=== PATIENT | female | born 1980 | race Caucasian/White ===

== ENCOUNTER 2017-08-12 13:05 | Emergency (ER) | payer SELFPAY ==
[~2017-08-12] VITALS: Ht 162.6 cm; Wt 77.0 kg
[2017-08-12 13:09] VITALS: BP 131/77; PULSE 81; RESP 16; TEMP 98.8
[2017-08-12] MEDS ORDERED: CYCL7.5T33 PO (13:40)
--- NOTE | 2017-08-12 13:42 | PD ---
HPI . Left leg pain Chief Complaint: Injury Time Seen by Provider: 13:24 Travel History International Travel<30 days: No Contact w/Intl Traveler<30days: No Traveled to known affect area: No History of Present Illness HPI 37-year-old female presented to the emergency department for evaluation of left leg pain. The pain started on Saturday when she was sweeping her townhouse and missed a step and landed on her butt. The patient is ambulatory but with a limp. There is no obvious deformity. There is no signs of trauma such as ecchymosis, erythema or edema. The patient describes the pain as starting in her left buttocks and shooting down the posterior portion of her left left leg to the knee. Patient denies any fevers, chills, malaise, hematuria, dysuria, abdominal pain, nausea, vomiting, diarrhea or lightheadedness. Patient denies any major medical history. The patient doesn't take any daily medications. The only allergy is penicillin. PFSH Past Medical History Medical History: Denies Significant Hx Diminished Hearing: No Tetanus Vaccination: Unknown ?: Not Tubal Ligation: Yes (REVERSAL) Past Surgical History Hysterectomy: Yes Social History Alcohol Use: No Tobacco Use: No Substance Use: No Allergies-Medications (Allergen,Severity, Reaction): Coded Allergies: Penicillins (Verified Allergy, Unknown, 08/12/17) Reported Meds & Prescriptions Reported Meds & Active Scripts Active Flexeril (Cyclobenzaprine HCl) 7.5 Mg Tab 7.5 Mg PO TID Review of Systems Except as stated in HPI: all other systems reviewed are Neg Physical Exam Narrative GENERAL: Well-nourished, well-developed 37-year-old female patient in no acute distress. SKIN: Focused skin assessment warm/dry. HEAD: Normocephalic. Atraumatic EYES: No scleral icterus. No injection or drainage. NECK: Supple, trachea midline. No JVD or lymphadenopathy. CARDIOVASCULAR: Regular rate and rhythm without murmurs, gallops, or rubs. Pedal pulses +2 bilaterally. RESPIRATORY: Breath sounds equal bilaterally. No accessory muscle use. GASTROINTESTINAL: Abdomen soft, non-tender, nondistended. MUSCULOSKELETAL: No cyanosis, or edema. Dorsi and plantar flexion full range of motion and equal strength. BACK: Nontender without obvious deformity. No CVA tenderness. Data Data Last Documented VS Vital Signs Date Time Temp Pulse Resp B/P (MAP) Pulse Ox O2 Delivery O2 Flow Rate FiO2 08/12/17 13:15 16 08/12/17 13:09 98.8 81 131/77 (95) Orders Orders Ketorolac Inj (Toradol Inj) (08/12/17 13:45) Orphenadrine Inj (Norflex Inj) (08/12/17 13:45) MDM Medical Decision Making Medical Screen Exam Complete: Yes Emergency Medical Condition: Yes Differential Diagnosis Differential diagnoses include but not limited to sciatica, ligament injury, tendon injury, contusion, fracture Narrative Course 37-year-old female presents emergency department for evaluation of left leg pain. The pain started after she missed a step and slipped last Saturday. Patient is ambulatory with a limp. There is no signs of trauma such as obvious deformity, ecchymosis, erythema or edema. The pain starts in her left buttocks and shoots down the posterior portion of her leg to her knee. Based on patient' s symptoms, clinical presentation, vital sign review and physical exam it is not necessary to admit the patient to the hospital or keep the patient in the emergency department for further evaluation. Patient will be given an IM injection of Toradol and an IM injection of Norflex discharged home with a prescription for Flexeril. Diagnosis Primary Impression: Sciatica of left side Referrals: Primary Care Physician Patient Instructions: General Instructions, Leg Pain (ED) Departure Forms: Tests/Procedures, Work Release Enter return to work date: Aug 13, 2017 Additional Instructions: Please return to emergency department if your symptoms return or worsen. Follow up with your primary care provider. Take medications as prescribed. May use heating pads to alleviate pain. Med/Other Pt SpecificInfo: Prescription(s) given Scripts Cyclobenzaprine (Flexeril) 7.5 Mg Tab 7.5 MG PO TID for Muscle Spasm, #10 TAB 0 Refills Prov: Francine Gomez Angelia CHANEY 08/12/17 Disposition: 01 DISCHARGE HOME Condition: Stable Jason,Francinelynda CHANEY Aug 12, 2017 13:42
[2017-08-12] MEDS ORDERED: ORPHENADRINE INJ 60 MG/2 ML AMP IM ONE (13:45)
[2017-08-12] MEDS ORDERED: KETOROLAC TROMETHAMINE 60 MG/2 ML (IM) VIAL IM ONE (13:45)
== END 2017-08-12 14:06 | disposition home or self-care (01) ==
LOC: PHEFT 13:05
DX: M54.32 Sciatica, left side (principal); Z91.81 History of falling
CPT/HCPCS: 96372; 99284; J1885; J2360

== ENCOUNTER 2017-08-15 17:46 | Emergency (ER) | payer SELFPAY ==
[~2017-08-15] VITALS: Ht 162.6 cm; Wt 77.0 kg
[~2017-08-15 17:46] MED LIST: CYCL7.5T33 PO
[2017-08-15 17:53] VITALS: BP 111/72; PULSE 66; RESP 16; TEMP 98.2; O2SAT 98
[2017-08-15] MEDS ORDERED: IBUP400T20 PO (18:07)
[2017-08-15] MEDS ORDERED: PRED10PA2 PO (18:12)
[2017-08-15] MEDS ORDERED: ULTR50TA5 PO (18:12)
--- NOTE | 2017-08-15 18:12 | PD ---
HPI . Left buttock and thigh pain Chief Complaint: Back/ Neck Pain or Injury Time Seen by Provider: 18:01 Travel History International Travel<30 days: No Contact w/Intl Traveler<30days: No Traveled to known affect area: No History of Present Illness HPI Patient presents complaining with continued pain in her left buttock radiating to the left posterior thigh. She states that she fell while sweeping her floor approximately 6 days ago. She has had pain since that time. The pain was not getting any better so she presented here on 08/12. She was diagnosed with probable sciatica and was discharged on Flexeril. She states that the Flexeril was not helping her pain at all. She subsequently presents back to us for recheck. She denies any overflow bladder incontinence or bowel incontinence. She denies any perineal anesthesia. She states she does not use IV drugs and has had no fevers. Her pain is exacerbated by certain positions and by standing on it. Pain is relieved by getting the pressure off of her leg. Pain is rated 9/10. Pain has been continuous for the last 6 days. PFSH Past Medical History Hx Anticoagulant Therapy: No Diminished Hearing: No ?: Not Tubal Ligation: Yes (REVERSAL) Past Surgical History Hysterectomy: Yes Social History Alcohol Use: No Tobacco Use: No Substance Use: No Allergies-Medications (Allergen,Severity, Reaction): Coded Allergies: Penicillins (Verified Allergy, Unknown, 08/15/17) Reported Meds & Prescriptions Reported Meds & Active Scripts Active Ultram (Tramadol HCl) 50 Mg Tab 50 Mg PO Q4H PRN Prednisone (48) 10 mg tab Dose Pack (Prednisone) 10 Mg Dspk 10 Mg PO DIRECTED Flexeril (Cyclobenzaprine HCl) 7.5 Mg Tab 7.5 Mg PO TID Reported Ibuprofen 400 Mg Tab 400 Mg PO Q6H PRN Review of Systems Except as stated in HPI: all other systems reviewed are Neg General / Constitutional: No: Fever, Chills Musculoskeletal: Positive: Pain (left buttock and left posterior thigh pain) Neurologic: No: Weakness, Paresthesia, Incontinence Physical Exam Narrative GENERAL: Patient is awake and alert and does not appear to be in any acute distress. SKIN: Warm and dry with no rash or lesions. HEAD: Normocephalic/atraumatic. EYES: Pupils are equal. Extraocular movements are intact. NECK: Full range of motion with no apparent pain. CARDIOVASCULAR: Regular rate and rhythm. RESPIRATORY: Nonlabored respirations. MUSCULOSKELETAL: No tenderness to percussion of the lumbar spine. Tender in the left buttock area. Straight leg raise on the left reproduces left posterior thigh pain straight leg raise on the right is negative. NEUROLOGICAL: Nonfocal. PSYCHIATRIC: Appropriate mood and affect. Data Data Last Documented VS Vital Signs Date Time Temp Pulse Resp B/P (MAP) Pulse Ox O2 Delivery O2 Flow Rate FiO2 08/15/17 17:53 98.2 66 16 111/72 (85) [address] Lumb Spine W/O Contrast (08/15/17 18:03) Prednisone (Deltasone) (08/15/17 18:15) MDM Medical Decision Making Medical Screen Exam Complete: Yes Emergency Medical Condition: Yes Medical Record Reviewed: Yes (records reviewed. Patient was seen here on 08/12 and diagnosed presumptively with traumatic sciatica. She did not have any imaging studies done at that time. She was discharged with a prescription for Flexeril.) Differential Diagnosis Differential diagnosis includes but is not limited to traumatic sciatica, compression fracture, sciatic nerve contusion Narrative Course This patient presents with sciatica since a fall 6 days ago. She did not have any imaging studies done prior to her visit to us today. Therefore, I have ordered a CT of her lumbar spine. The tentative plan will be to discharge her to home with steroids and Ultram. CT: 1. No acute fracture or subluxation. 2. At L4-5 there is a mild broad-based disc protrusion, slightly worse on the left side lateral recess and mild foraminal encroachment. Diagnosis Primary Impression: Sciatica of left side Referrals: Shaun Peña MD 1 week [facility] Patient Instructions: General Instructions, Lumbar Disc Herniation (DC), Sciatica (DC) Med/Other Pt SpecificInfo: Prescription(s) given Scripts Tramadol (Ultram) 50 Mg Tab 50 MG PO Q4H Y for PAIN, #12 TAB 0 Refills Prov: Marilu Borrego MD 08/15/17 Prednisone (48) 10 mg tab Dose Pack (Prednisone (48) 10 mg tab Dose Pack) 10 Mg Dspk 10 MG PO DIRECTED for Inflammation, #1 DSPK 0 Refills Prov: Marilu Borrego MD 08/15/17 Disposition: 01 DISCHARGE HOME Condition: Stable Marilu Borrego MD Aug 15, 2017 18:12
[2017-08-15] MEDS ORDERED: predniSONE 20 MG TAB PO ONE (18:15)
--- NOTE | 2017-08-15 18:54 | RADRPT ---
EXAM DATE/TIME: 08/15/2017 18:14 [facility] COMPARISON: No previous studies available for comparison. INDICATIONS : Trauma, fell down stairs 4 days ago. Left low back and leg pain. RADIATION DOSE: 30.90 CTDIvol (mGy) MEDICAL HISTORY : None SURGICAL HISTORY : Hysterectomy. ENCOUNTER: Initial ACUITY: 4 - 6 days PAIN SCALE: 7/10 LOCATION: Left low back TECHNIQUE: Volumetric scanning of the lumbar spine was performed. Multiplanar reconstructions in the sagittal, coronal and oblique axial planes were performed. Using automated exposure control and adjustment of the mA and/or kV according to patient size, radiation dose was kept as low as reasonably achievable t o obtain optimal diagnostic quality images. DICOM format image data is available electronically for review and comparison. FINDINGS: No acute fracture or spondylolisthesis. No significant abnormality at L1-L3. Mild disc bulges at L3-4 and L5-S1. At L4-5 is a mild posterior disc protrusion with encroachment on the lateral recesses, left greater t goldberg right. CONCLUSION: 1. No acute fracture or subluxation. 2. At L4-5 there is a mild broad-based disc protrusion, slightly worse on the left side lateral reces s and mild foraminal encroachment. Sascha Chavira MD on August 15, 2017 at 18:49 Board Certified Radiologist. This report was verified electronically.
== END 2017-08-15 19:27 | disposition home or self-care (01) ==
LOC: PHEFT 17:46
DX: M54.32 Sciatica, left side (principal)
CPT/HCPCS: 72131; 99284; J7512

== ENCOUNTER 2017-08-21 10:03 | Emergency (ER) | payer SELFPAY ==
[~2017-08-21] VITALS: Ht 162.6 cm; Wt 77.0 kg
[~2017-08-21 10:03] MED LIST changes: +IBUP400T20 PO; +PRED10PA2 PO; +ULTR50TA5 PO
[2017-08-21 10:10] VITALS: BP 123/64; PULSE 60; RESP 16; TEMP 98.3; O2SAT 97
[2017-08-21] MEDS ORDERED: KETOROLAC TROMETHAMINE 60 MG/2 ML (IM) VIAL IM ONE (11:30)
[2017-08-21] MEDS ORDERED: DIAZEPAM 5 MG TAB PO ONE (11:30)
--- NOTE | 2017-08-21 11:41 | PD ---
HPI . Left Lateral lower back pain Chief Complaint: Back/ Neck Pain or Injury Time Seen by Provider: 11:00 Travel History International Travel<30 days: No Contact w/Intl Traveler<30days: No Traveled to known affect area: No History of Present Illness HPI 37-year-old female presents to emergency department for evaluation of left lateral lower back pain. The patient first presented 9 days ago with the same complaint. She was diagnosed with sciatica and discharged on Flexeril. The patient returned 6 days ago and CAT scan imaging of her lumbar spine was ordered. The CAT scan shows a disc protrusion at L4-L5. The patient was discharged home on prednisone and Ultram and instructed to follow-up with Dr. Peña the neurosurgeon. The patient states she woke up today and feels like the medication she was discharged on is not effective at managing the pain. The patient denies any fevers, chills, malaise, incontinence of urine or bowel, saddle numbness, dysuria, hematuria or lightheadedness. The patient is able to ambulate although she states it is painful to move. The patient has had no new trauma or injury since the initial visit. PFSH Past Medical History Medical History: Denies Significant Hx Hx Anticoagulant Therapy: No Diminished Hearing: No Tetanus Vaccination: < 5 Years Influenza Vaccination: Yes ?: Not Tubal Ligation: Yes (REVERSAL) Past Surgical History Section: Yes (x2) Gynecologic Surgery: Yes (2 , TUBAL LIGATION, REVERSAL THEN HYSTERECTOMY) Hysterectomy: Yes Other Surgery: Yes (LYMPH NODE REMOVAL- left neck area) Social History Alcohol Use: No (denies) Tobacco Use: No (denies) Substance Use: No (denies) Allergies-Medications (Allergen,Severity, Reaction): Coded Allergies: Penicillins (Verified Allergy, Unknown, 08/21/17) Reported Meds & Prescriptions Reported Meds & Active Scripts Active Valium (Diazepam) 5 Mg Tab 5 Mg PO BID PRN Ultram (Tramadol HCl) 50 Mg Tab 50 Mg PO Q4H PRN Prednisone (48) 10 mg tab Dose Pack (Prednisone) 10 Mg Dspk 10 Mg PO DIRECTED Flexeril (Cyclobenzaprine HCl) 7.5 Mg Tab 7.5 Mg PO TID Reported Ibuprofen 400 Mg Tab 400 Mg PO Q6H PRN Review of Systems Except as stated in HPI: all other systems reviewed are Neg Physical Exam Narrative GENERAL: Well-nourished, well-developed 37-year-old female patient in no acute respiratory distress. Nontoxic appearing. SKIN: Focused skin assessment warm/dry. HEAD: Normocephalic. Atraumatic. NEUROLOGICAL: Awake and alert. Cranial nerves II through XII intact. Motor and sensory grossly within normal limits. Five out of 5 muscle strength in all muscle groups. Normal speech. EYES: No scleral icterus. No injection or drainage. NECK: Supple, trachea midline. No JVD or lymphadenopathy. CARDIOVASCULAR: Regular rate and rhythm without murmurs, gallops, or rubs. RESPIRATORY: Breath sounds equal bilaterally. No accessory muscle use. GASTROINTESTINAL: Abdomen soft, non-tender, nondistended. MUSCULOSKELETAL: No obvious deformity, cyanosis, or edema. BACK: Left lateral lower paraspinal tenderness. No obvious deformity, ecchymosis or erythema. No CVA tenderness. Data Data Last Documented VS Vital Signs Date Time Temp Pulse Resp B/P (MAP) Pulse Ox O2 Delivery O2 Flow Rate FiO2 08/21/17 10:39 16 08/21/17 10:10 98.3 60 123/64 (83) 97 Orders Orders Ketorolac Inj (Toradol Inj) (08/21/17 11:30) Diazepam (Valium) (08/21/17 11:30) Ed Discharge Order (08/21/17 11:41) [facility] Medical Decision Making Medical Screen Exam Complete: Yes Emergency Medical Condition: Yes Differential Diagnosis Differential diagnosis as include but not limited to sciatica, muscular strain, contusion, sciatic nerve pain Narrative Course 37-year-old female presents to the emergency department for evaluation of persistent pain plaguing her left lateral lower back after falling 9 days ago. Patient had a CAT scan at our facility of her lumbar spine 6 days ago which showed L4-L5 disc protrusion slightly worse on the left side. Patient has had no new injury or trauma to the area and she has no new symptoms related to the injury so further imaging is not warranted at this time. Patient case discussed with my attending, Dr. Billingsley. Patient reports that she will be able to find a ride home if given medication to help her pain in her facility. Patient will be given 30 mg IM Toradol and 5 mg by mouth Valium and discharged home with instructions to follow-up with her primary care and Dr. Peña. Diagnosis Primary Impression: Sciatica of left side Referrals: Shaun Peña MD Additional Instructions: Please return to emergency department if your symptoms return or worsen. Follow up with your primary care provider. Follow-up with Dr. Peña, the neurosurgeon. Continue to take the prednisone as prescribed. Take medications as prescribed. Use caution with Valium as this medications may make you drowsy. Do not drive, operate heavy machinery or drink alcohol while using this medication. Disposition: 01 DISCHARGE HOME Condition: Stable Francine Gomez Aug 21, 2017 11:41
[2017-08-21] MEDS ORDERED: DIAZ5 PO (11:42)
== END 2017-08-21 11:53 | disposition home or self-care (01) ==
LOC: PHED 10:03 → PHEFT 11:53
DX: M54.42 Lumbago with sciatica, left side (principal)
CPT/HCPCS: 96372; 99284; J1885